=== PATIENT | male | born 1970 | race African-American/Black ===

== ENCOUNTER 2018-03-22 19:13 | Emergency (ER) | payer SELFPAY ==
[2018-03-22] MEDS ORDERED: TETANUS & DIPHTHERIA TOX,ADULT 0.5 ML VIAL ONE (19:54)
--- NOTE | 2018-03-22 20:53 | RAD REPORT ---
EXAM DESCRIPTION: RAD - Forearm Right - 03/22/2018 8:21 pm CLINICAL HISTORY: Laceration, soft tissue injury COMPARISON: None. FINDINGS: No fracture is identified. There is no dislocation or periosteal reaction noted. Punctate radiopaque density is present in the anteromedial soft tissues proximal forearm. It is unkno wn if this is the site of injury. This could be a skin contaminant or foreign body. Numerous punctate foreign bodies are seen in the medial soft tissues near the distal radius. This is more likely the s ite of soft tissue injury. IMPRESSION: No acute bone or joint finding. Multiple punctate foreign bodies along the soft tissues near the distal radius. Repeat imaging can be performed after wound cleansing determine if these are skin contaminant or foreign bodies within the soft tissues.
--- NOTE | 2018-03-22 22:44 | EDPHYS ---
Physician Documentation [facility] Name: Gabo Mott Age: 47 yrs Sex: Male : 1970 Arrival Date: 03/22/2018 Time: 19:19 Bed 19 Private MD: ED Physician Samir Villeda HPI: 03/22 19:55 This 47 yrs old Black Male presents to ER via Ambulatory with complaints of Laceration. pm1 19:55 The patient or guardian complains of a puncture wound, Metal piece from anam wire, pm1 multiple abrasions from anam wire. The complaints affect the dorsal aspect of right forearm. Context: The problem was sustained at home, resulted from Tripped on his boots and caught his fall with his right arm. reports that he pulled a metal piece from his right forearm and had some abrasions/lacerations to right forearm. Injury occurred at 1999 last night. Treatment prior to arrival includes: no previous treatment. Associated signs and symptoms: Pertinent negatives: decreased range of motion, deformity, fever, numbness, swelling, tingling. The patient has not experienced similar symptoms in the past. The patient has not recently seen a physician. Historical: - Allergies: 19:30 No Known Allergies; aj - Home Meds: 19:30 None [Active]; aj - PMHx: 19:30 None; aj - PSHx: 19:30 None; aj - Immunization history:: Adult Immunizations up to date. - Social history:: Smoking status: Patient uses tobacco products, smokes one pack cigarettes per day. - Ebola Screening: : Patient negative for fever greater than or equal to 101.5 degrees Fahrenheit, and additional compatible Ebola Virus Disease symptoms. ROS: 20:05 Constitutional: Negative for fever, chills, and weight loss, Eyes: Negative for injury, pm1 pain, redness, and discharge, ENT: Negative for injury, pain, and discharge, Neck: Negative for injury, pain, and swelling, Cardiovascular: Negative for chest pain, palpitations, and edema, Respiratory: Negative for shortness of breath, cough, wheezing, and pleuritic chest pain, Abdomen/GI: Negative for abdominal pain, nausea, vomiting, diarrhea, and constipation, Back: Negative for injury and pain. 20:05 Neuro: Negative for headache, weakness, numbness, tingling, and seizure. 20:05 MS/extremity: Positive for abrasion, puncture, of the dorsal aspect of right forearm. 20:05 Skin: Positive for puncture at distal aspect of right distal ulnar aspect and abrasions to remainder of dorsal aspect of right forearm. Exam: 21:45 Constitutional: This is a well developed, well nourished patient who is awake, alert, pm1 and in no acute distress. Head/Face: Normocephalic, atraumatic. Eyes: Pupils equal round and reactive to light, extra-ocular motions intact. Lids and lashes normal. Conjunctiva and sclera are non-icteric and not injected. Cornea within normal limits. Periorbital areas with no swelling, redness, or edema. ENT: Nares patent. No nasal discharge, no septal abnormalities noted. Tympanic membranes are normal and external auditory canals are clear. Oropharynx with no redness, swelling, or masses, exudates, or evidence of obstruction, uvula midline. Mucous membranes moist. Neck: Trachea midline, no thyromegaly or masses palpated, and no cervical lymphadenopathy. Supple, full range of motion without nuchal rigidity, or vertebral point tenderness. No Meningismus. Chest/axilla: Normal chest wall appearance and motion. Nontender with no deformity. No lesions are appreciated. Cardiovascular: Regular rate and rhythm with a normal S1 and S2. No gallops, murmurs, or rubs. No pulse deficits. Respiratory: Lungs have equal breath sounds bilaterally, clear to auscultation and percussion. No rales, rhonchi or wheezes noted. No increased work of breathing, no retractions or nasal flaring. Abdomen/GI: Soft, non-tender, with normal bowel sounds. No distension or tympany. No guarding or rebound. No evidence of tenderness throughout. Back: No spinal tenderness. No costovertebral tenderness. Full range of motion. MS/ Extremity: Pulses equal, no cyanosis. Neurovascular intact. Full, normal range of motion. 21:45 Skin: Small 3 mm deep puncture wound to distal ulnar aspect of right forearm. No foreign body. Multiple small dark winn superficial foreign bodies to abrasions on dorsal aspect of right forearm. Small superficial abrasion to left thigh and left marshall. Small abrasion to left palm. 21:45 Neuro: Orientation: is normal, Motor: is normal, moves all fours, Sensation: is normal, no obvious gross deficits. Vital Signs: 19:30 BP 145 / 80; Pulse 64; Resp 20; Temp 98.2; Pulse Ox 98% on R/A; Weight 108.86 kg; aj Height 6 ft. 2 in. (187.96 cm); 22:45 BP 133 / 84; Pulse 59; Resp 17; Pulse Ox 98% on R/A; rk2 19:30 Body Mass Index 30.81 (108.86 kg, 187.96 cm) aj MDM: 19:42 Patient medically screened. pm1 21:30 ED course: Right forearm cleansed extensively and removed small superficial dark pm1 foreign bodies from skin. 3 mm deep puncture wound at distal ulnar aspect of right forearm explored and no foreign bodies present. After reporting foreign bodies to the patient, he reported the sensation of foreign body to left index finger and left palm. will order repeat right forearm and left hand. 22:42 Data reviewed: vital signs. Data interpreted: Pulse oximetry: on room air is 98 %. pm1 Interpretation: normal. Counseling: I had a detailed discussion with the patient and/or guardian regarding: the historical points, exam findings, and any diagnostic results supporting the discharge/admit diagnosis, radiology results, the need for outpatient follow up, to return to the emergency department if symptoms worsen or persist or if there are any questions or concerns that arise at home. 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 Exp: rk2 06/21/2020. Lot #: [id number]. } Route: IM; Site: left deltoid; 21:32 Follow up: Response: No adverse reaction rk2 Disposition: 03/23 06:04 Co-signature as Attending Physician, Samir Villeda MD I agree with the assessment and tw4 plan of care. Disposition: 03/22/18 22:44 Discharged to Home. Impression: Puncture wound without foreign body of right forearm, Abrasion of right forearm, Superficial foreign body of right forearm - abrasion of right forearm. - Condition is Stable. - Discharge Instructions: Abrasion, Puncture Wound. - Prescriptions for Bactrim DS 800- 160 mg Oral Tablet - take 1 tablet by ORAL route every 12 hours for 10 days; 20 tablet. Keflex 500 mg Oral Capsule - take 1 capsule by ORAL route every 12 hours for 10 days; 20 capsule. - Medication Reconciliation Form, Thank You Letter, Antibiotic Education form. - Follow up: Emergency Department; When: As needed; Reason: Worsening of condition. Follow up: Private Physician; When: 2 - 3 days; Reason: Recheck today's complaints, Continuance of care, Re-evaluation by your physician. - Problem is new. - Symptoms have improved. Signatures: Dispatcher [employer] EDMS Shell Dubose RN RN Noman Falcon NP FORECLOSURE [place]ALEGAL pm1 Samir Villeda MD MD tw4 Sara Roy RN RN rk2 Corrections: (The following items were deleted from the chart) 03/22 22:44 22:44 03/22/2018 22:44 Discharged to Home. Impression: Abrasion of right forearm; pm1 Superficial foreign body of right forearm - abrasion of right forearm; Puncture wound without foreign body of right forearm. Condition is Stable. Forms are Medication Reconciliation Form, Thank You Letter, Antibiotic Education, Prescription Opioid Use. Follow up: Emergency Department; When: As needed; Reason: Worsening of condition. Follow up: Private Physician; When: 2 - 3 days; Reason: Recheck today's complaints, Continuance of care, Re-evaluation by your physician. Problem is new. Symptoms have improved. pm1 23:02 22:44 03/22/2018 22:44 Discharged to Home. Impression: Puncture wound without foreign rk2 body of right forearmAbrasion of right forearm; Superficial foreign body of right forearm - abrasion of right forearm. Condition is Stable. Forms are Medication Reconciliation Form, Thank You Letter, Antibiotic Education, Prescription Opioid Use. Follow up: Emergency Department; When: As needed; Reason: Worsening of condition. Follow up: Private Physician; When: 2 - 3 days; Reason: Recheck today's complaints, Continuance of care, Re-evaluation by your physician. Problem is new. Symptoms have improved. pm1
--- NOTE | 2018-03-22 22:44 | ER ---
Nurse's Notes [facility] Name: Gabo Mott Age: 47 yrs Sex: Male : 1970 Arrival Date: 03/22/2018 Time: 19:19 Bed 19 Private MD: Diagnosis: Abrasion of right forearm;Superficial foreign body of right forearm-abrasion of right forearm;Puncture wound without foreign body of right forearm Presentation: 03/22 19:28 Presenting complaint: Patient states: Patient reports cutting right forearm on anam aj wire fence last night. Minor scabbed lacerations noted to right posterior forearm. Transition of care: patient was not received from another setting of care. Complicating Factors: There are no complicating factors for this patient. Onset of symptoms was March 21, 2018. Risk Assessment: Do you want to hurt yourself or someone else? Patient reports no desire to harm self or others. Care prior to arrival: None. 19:28 Method Of Arrival: Ambulatory aj 19:28 Acuity: LOTUS 5 aj 20:03 Initial Sepsis Screen: Does the patient meet any 2 criteria? No. Patient's initial rk2 sepsis screen is negative. Does the patient have a suspected source of infection? No. Patient's initial sepsis screen is negative. Triage Assessment: 19:30 General: Appears in no apparent distress. comfortable, Behavior is calm, cooperative, aj appropriate for age. Pain: Denies pain. Neuro: Level of Consciousness is awake, alert, obeys commands, Oriented to person, place, time, situation, Appropriate for age. Respiratory: Airway is patent Respiratory effort is even, unlabored, Respiratory pattern is regular, symmetrical. Derm: Skin is intact, is healthy with good turgor, Skin is pink, warm \T\ dry. normal. Injury Description: Laceration sustained to palmar aspect of right forearm is jagged, superficial, 0.5 to 2.5 cm long, not bleeding. Historical: - Allergies: 19:30 No Known Allergies; aj - Home Meds: 19:30 None [Active]; aj - PMHx: 19:30 None; aj - PSHx: 19:30 None; aj - Immunization history:: Adult Immunizations up to date. - Social history:: Smoking status: Patient uses tobacco products, smokes one pack cigarettes per day. - Ebola Screening: : Patient negative for fever greater than or equal to 101.5 degrees Fahrenheit, and additional compatible Ebola Virus Disease symptoms. Screenin:02 Abuse screen: Denies threats or abuse. Nutritional screening: No deficits noted. rk2 Tuberculosis screening: No symptoms or risk factors identified. Fall Risk None identified. Assessment: 20:04 Musculoskeletal: superficial wounds noted to right forearm. Injury Description: rk2 Abrasion. 21:38 Reassessment: Wounds cleaned on pt. right arm. Injury Description:. rk2 22:43 Reassessment: Applied triple antibiotic ointment to pt. wounds... bandaged with gauze rk2 wrap. Vital Signs: 19:30 BP 145 / 80; Pulse 64; Resp 20; Temp 98.2; Pulse Ox 98% on R/A; Weight 108.86 kg; aj Height 6 ft. 2 in. (187.96 cm); 22:45 BP 133 / 84; Pulse 59; Resp 17; Pulse Ox 98% on R/A; rk2 19:30 Body Mass Index 30.81 (108.86 kg, 187.96 cm) ED Course: 19:19 Patient arrived in ED. ds1 19:29 Triage completed. aj 19:30 Arm band placed on left wrist. Patient placed in an exam room. aj 19:32 Noman Garrison NP is PHCP. pm1 19:32 Samir Villeda MD is Attending Physician. pm1 19:34 Sara Roy RN is Primary Nurse. rk2 20:02 Patient has correct armband on for positive identification. rk2 20:03 No provider procedures requiring assistance completed. rk2 20:17 X-ray completed. Portable x-ray completed in exam room. Patient tolerated procedure bb2 well. 20:17 Forearm Right XRAY In Process Unspecified. EDMS 21:56 X-ray completed. Portable x-ray completed in exam room. Patient tolerated procedure ml well. 21:57 Forearm Right XRAY In Process Unspecified. EDMS 21:57 Hand Left 3 View XRAY In Process Unspecified. EDMS 23:02 Patient did not have IV access during this emergency room visit. 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 Exp: rk2 06/21/2020. Lot #: [id number]. } Route: IM; Site: left deltoid; 21:32 Follow up: Response: No adverse reaction rk2 Outcome: 22:44 Discharge ordered by . pm1 23:01 Discharged to home ambulatory. rk2 23:01 Condition: good 23:01 Discharge instructions given to patient, Prescriptions given X 2. 23:02 Patient left the ED. rk2 Signatures: Dispatcher [employer] EDShell Larson, HENNY RN Natacha Rosa ds1 Brinda Jameson Patrick, ELIEZER ORDER DISPATCHER pm1 Stacia Langston bb2 Sara Roy RN RN rk2
--- NOTE | 2018-03-23 08:14 | RAD REPORT ---
EXAM DESCRIPTION: RAD - Hand Left 3 View - 03/22/2018 9:57 pm CLINICAL HISTORY: Hand pain, foreign bodies sensation common no trauma history noted COMPARISON: None. FINDINGS: No fracture, dislocation or periosteal reaction noted. No foreign body or other soft tissu e abnormality. IMPRESSION: Negative left hand examination.
--- NOTE | 2018-03-23 08:17 | RAD REPORT ---
EXAM DESCRIPTION: RAD - Forearm Right - 03/22/2018 9:57 pm CLINICAL HISTORY: Foreign body removal COMPARISON: March 22 FINDINGS: No fracture identified. No acute bone or joint finding. Punctate radiopaque density or foreign body in the proximal forearm is still present. The numerous pu nctate foreign bodies along the distal ulnar side soft tissues have been reduced but not fully elimin ated. IMPRESSION: Skin contaminant or foreign bodies have been partially cleared since earlier imaging.
== END 2018-03-22 23:02 | disposition home or self-care (01) ==
LOC: ER 19:13
DX: S51.811A Laceration without foreign body of right forearm, initial encounter (principal); S70.312A Abrasion, left thigh, initial encounter; S80.812A Abrasion, left lower leg, initial encounter; S60.512A Abrasion of left hand, initial encounter; F17.210 Nicotine dependence, cigarettes, uncomplicated; W26.8XXA Contact with other sharp object(s), not elsewhere classified, initial encounter; Y93.89 Activity, other specified; Y92.9 Unspecified place or not applicable; Y99.8 Other external cause status; Z23 Encounter for immunization
CPT/HCPCS: 90714; 99283